=== PATIENT | male | born 1985 | race Caucasian/White ===

== ENCOUNTER 2018-08-08 14:54 | Emergency (ER) | payer MEDICAID ==
[~2018-08-08] VITALS: Ht 167.6 cm; Wt 81.4 kg
[2018-08-08] MEDS ORDERED: OXYM30SP81 NAS (15:03)
[2018-08-08 15:38] LABS: MICROSCOPIC AUTO
[2018-08-08 15:45] LABS: CULTURE INDICATED? YES
[2018-08-08 16:04] LABS: ALANINE AMINOTRANSFERASE 33 U/L (12-78); ALBUMIN 3.7 g/dL (3.4-5.0); ANION GAP 6 mmol/L (5-15); CALCIUM 8.9 mg/dL (8.5-10.1); CHLORIDE 109 mmol/L (98-107); CREATININE 1.32 mg/dL (0.7-1.3)
[2018-08-08 16:06] LABS: ALKALINE PHOSPHATASE 104 U/L (45-117); BILIRUBIN,TOTAL 0.4 mg/dL (0.2-1.0); TOTAL PROTEIN 7.4 g/dL (6.4-8.2)
[2018-08-08 16:09] LABS: BASOPHILS # (AUTO) 0.07 x10^3/uL (0-0.1); BASOPHILS % (AUTO) 1 % (0-1); EOSINOPHILS # (AUTO) 0.75 x10^3/uL (0-0.4); EOSINOPHILS % (AUTO) 8 % (1-7); LYMPHOCYTES # (AUTO) 2.92 x10^3/uL (1-3.4); LYMPHOCYTES % (AUTO) 32 % (22-44); MD NO; MEAN CORPUSCULAR HEMOGLOBIN 26.6 pg (27.5-34.5); MEAN CORPUSCULAR HGB CONC 32.6 g/dL (33.2-36.2); MEAN CORPUSCULAR VOLUME 81.5 fL (81-97); MEAN PLATELET VOLUME 9.9 fL (7.4-10.4); MONOCYTES # (AUTO) 0.56 x10^3/uL (0.2-0.8); MONOCYTES % (AUTO) 6 % (2-9); NEUTROPHILS # (AUTO) 4.98 x10^3/uL (1.8-6.8); NEUTROPHILS % (AUTO) 54 % (42-75); PLATELET COUNT 274 x10^3/uL (130-400); RED BLOOD COUNT 5.97 x10^6/uL (4.38-5.82); RED CELL DISTRIBUTION WIDTH 13.6 % (9.4-14.8)
[2018-08-08] MEDS ORDERED: CEFTRIAXONE 250 MG ONE (16:23)
[2018-08-08] MEDS ORDERED: LIDOCAINE-MPF 2%, 2ML ONE (16:23)
[2018-08-08] MEDS ORDERED: AZITHROMYCIN 500 MG TABLET ONE (16:23)
[2018-08-08] MEDS ORDERED: CEFTRIAXONE 250 MG IM ONE (16:30)
[2018-08-08] MEDS ORDERED: AZITHROMYCIN 500 MG TABLET PO ONE (16:30)
[2018-08-08 17:05] VITALS: BP 119/53
== END 2018-08-08 17:12 | disposition home or self-care (01) ==
LOC: ED 16:13
DX: G44.221 Chronic tension-type headache, intractable (principal); N18.9 Chronic kidney disease, unspecified; A56.01 Chlamydial cystitis and urethritis; R30.0 Dysuria; F17.290 Nicotine dependence, other tobacco product, uncomplicated
CPT/HCPCS: 36415; 70450; 80053; 81001; 85025; 87086; 96372; 99285; 99406; J0696